=== PATIENT | female | born 1990 | race Caucasian/White ===

== ENCOUNTER → 2016-06-30 | Outpatient (CLI) | payer OTHER ==
--- NOTE | 2016-06-30 15:14 | DI ---
LEFT FOOT, 06/30/2016 1:48 PM: Clinical History: Hallux valgus with bunions of the left foot. Previous Exam: None at this facility. 3 weightbearing views are submitted. There is no acute soft tissue, osseous, or joint abnormality. Th ere is a prominent bunion of the first metatarsal bone. There is also hallux valgus. Reading: Hallux valgus and bunion.
== END ==
LOC: RAD 13:54
PROVIDERS: ATTEND Podiatrist Foot & Ankle Surgery
DX: M20.12 Hallux valgus (acquired), left foot (principal); M79.672 Pain in left foot; M21.6X2 Other acquired deformities of left foot; M20.42 Other hammer toe(s) (acquired), left foot
CPT/HCPCS: 73630

== ENCOUNTER 2016-07-22 06:05 | Day surgery (SDC) | payer OTHER ==
[~2016-07-22 06:05] MED LIST: LIDOCAINE W/ SODIUM BICARB 0.5 ML SYR ONE; Lactated Ringers 1,000 ML PRIMARY IV ONE; ceFAZolin Inj 2gm (Premix) 50 ML IV ONE
[2016-07-22 06:33] VITALS: RESP 15
[2016-07-22] MEDS ORDERED: LIDOCAINE 2%/ EPI 1:200,000 - 20 ML VIAL ONE (06:57)
[2016-07-22] MEDS ORDERED: fentaNYL Inj 100 MCG/2 ML VIAL ONE (06:57)
[2016-07-22] MEDS ORDERED: MIDAZOLAM 5 MG/1 ML ONE (06:57)
[2016-07-22] MEDS ORDERED: ROPIVACAINE HCL 7.5 MG/1 ML - 20 ML ONE (06:57)
[2016-07-22] MEDS ORDERED: DEXAMETHASONE PF 10 MG/1 ML VIAL ONE (06:59)
[2016-07-22] MEDS ORDERED: Lidocaine Inj 1% 20 ML ONE (07:02)
[2016-07-22] MEDS ORDERED: BUPivacaine Inj 0.5% PF (5mg/ml) 10ml vial ONE (07:02)
--- NOTE | 2016-07-22 07:34 | CRNA.PROCE ---
Nerve Block Documentation - - Safety Measures: Time Out Taken, Site Verified - - Type of Nerve Block Used: Left Popliteal Fossa Block (Anesthesia for Left foot Bunionectomy.) Position for Nerve Block: Supine Moniters Used During Block: EKG, SPO2, NIBP Oxygen Sumpplented: Yes Sedation Used - Enter Amount in Comment Field: Midazolam (mg): Yes (2.5 plus 1.5 ), Fentanyl (mcg): Yes (100) Skin Prep Used: ChloroPrep (Twice) Draped: No Technique: Nerve Stimulator Nerve Block Needle Used: 80 mm ProBlk II Stimulation Hz: 1 Stimulation Staring mA: 1.8 Stimulation Ending mA: 0.48 Local Anesthetic - Enter Amt in Comment Field: 2 % Xylocaine with Epinephrine 1: 200,000 (mL): Yes (15 ml in 3 ml increments), Other Anesthetic: Yes (0.7 Ropivicaine 15 ml in 3 ml increments) Additives to Nerve Blocks: Dexamethasone (mL): Yes (10 mg)
[2016-07-22] MEDS ORDERED: Lactated Ringers 1,000 ML PRIMARY IV ONE (08:58)
[2016-07-22] MEDS ORDERED: KETOROLAC 30 MG/1 ML VIAL ONE (09:04)
[2016-07-22] MEDS ORDERED: DEXAMETHASONE SOD PHOSPHATE 4 MG/1 ML VIAL ONE (09:13)
[2016-07-22] MEDS ORDERED: BUPivacaine Liposome/PF (Exparel) Inj 20ml vial INFIL ONE ×3 (09:14→09:40)
[2016-07-22] MEDS ORDERED: NORMAL SALINE 10 ML SYRINGE FLUSH IVP PRN (10:01)
[2016-07-22] MEDS ORDERED: HYDROcodone-APAP 10 MG-325 MG TABLET PO PRN (10:01)
--- NOTE | 2016-07-22 10:14 | GEN.OPNOTE ---
Operative Report Surgeon: Adrián Kumar DPM Insulation Inspector: Other (Ric Aguilar DPM) Anesthesia Type: Regional, MAC, None (Post op exparel local injection) Surgery Date: 07/22/16 Preoperative Diagnosis: 1. Left hallux valgus. 2. Left foot pain. Postoperative Diagnosis: 1. Left hallux valgus. 2. Left foot pain. Procedure: 1. Base wedge bunionectomy, left foot. Estimated Blood Loss (mL): 10 (pneumatic cuff to the left ankle 250 mmHg pressure for a total time of 106 minutes.) Fluids: 2 g Ancef preoperatively. 1300 mL lactated Ringer's. IV sedation Complications: None Description of Procedure: The patient was brought to the operating room and placed in the supine position. They had already been given a popliteal block of the left lower extremity, and MAC was continued. The foot was prepped and draped in the usual sterile fashion. A timeout was performed. A preoperative and intraoperative C- arm radiographs were taken to help delineate the area of concern, and this was marked on the foot as needed. The foot was then exsanguinated with an elastic Esmarch, after which a pneumatic cuff was inflated about the ankle to 250 mmHg pressure. A incision was placed dorsal medial to the first ray proximally 1 cm from the base of the first metatarsal to the base of the proximal phalanx of the great toe. Deep by sharp and blunt dissection ting care to retract neurovascular structures. Only was used as needed also. Dissection was initially carried down into the first intermetatarsal space where the lateral first metatarsal joint capsule was identified. An inverted L capsulotomy was performed of the lateral joint capsule released any sesamoidal ligament as well. Next dissection was carried through the periosteum and a linear fashion from the base of the first metatarsal all the way to the first metatarsophalangeal joint a dorsal medial aspects. The capsule was reflected from the dorsal medial aspect and using a TPS sagittal saw, the bony exostosis was removed from the metatarsal head. The area was irrigated. Modified as needed. And again irrigated. Next is restricted to the base of the first metatarsal where the periosteum was reflected from the dorsal aspect of the first metatarsal along the proposed incision line for a base wedge. Under C- arm guidance a K wire or guide K wire was placed 1 cm from the first metatarsal cuneiform joint. The K wire was angulated so that the cortical hinge was dorsal medial to allow decrease in I am angle as well as plantar flexion. Next with a saw guide a wedge of the bone was taken under C-arm guidance. This I shaped piece was removed and then the first metatarsal carefully closed to reduce IM angle. The osteotomy was held with a bone clamp and checked under C- arm. It appeared that the inner metatarsal angle was decreased to approximately 1 or 2 from 12 in both the AP and oblique views. The osteotomy was then fixated with a 3.5 times 16mm screw proximally and a 2.540 mm screw distally from the Coolture dart fire set. Area was copiously irrigated. The incisions were then closed ting care to perform a medial capsulorrhaphy of the first midtarsal phalangeal joint capsule. Express was injected subcutaneously for long-acting analgesia. 2-0 Vicryl was used for the joint capsule, 4-0 Vicryl was used for the subcutaneous tissues, and 4-0 nylon was used for the skin. His reinforced with Mastisol and Steri-Strips, and covered with Xeroform fluffs Kerlix and Coban. The pneumatic cuff was released from the left ankle after 106 minutes total time. Capillary return was noted in all the toes. The patient's left foot and lower leg were then placed in an L splint. Patient was returned recovery.
[2016-07-22 11:35] VITALS: TEMP 97.2
--- NOTE | 2016-07-22 15:22 | DI ---
XR FOOT COMPLETE MIN 3VW,07/22/2016 10:01 AM: Clinical History: Left hallux valgus. Previous Exam: June 30, 2016 Findings: 3 views of the left foot are obtained in plaster, and demonstrate postsurgical changes consistent wit h a left first metatarsal osteotomy. Overlying plaster limits fine bony detail. Impression: Healing fracture left mid first metatarsal.
--- NOTE | 2016-07-25 12:45 | OPS CRUTCH ---
Diagnosis : Status Post Left Foot Bunionectomy/SCARF/HOWARD Referral Reason: Gait Training O: The patient was instructed in the use of crutches with gait belt, both on level surfaces and up and down four stairs, non weight-bearing. P: No further therapy is indicated at this time. MTDD
== END 2016-07-22 11:20 | disposition home or self-care (01) ==
LOC: SDSC 06:05
PROVIDERS: ATTEND Podiatrist Foot & Ankle Surgery
DX: M20.12 Hallux valgus (acquired), left foot (principal); M21.6X2 Other acquired deformities of left foot
CPT/HCPCS: 28299; 73630; 76000; 84703; 97116; C9290; J0690; J1885; J3010; J1100; J2001; J2250; J3490; J7120

== ENCOUNTER → 2016-09-08 | Outpatient (CLI) | payer OTHER ==
--- NOTE | 2016-09-08 12:13 | DI ---
XR FOOT COMPLETE MIN 3VW WB,09/08/2016 10:17 AM: Clinical History: Left foot hallux valgus. Previous Exam: July Findings: 3 views of the left foot are obtained, and demonstrate postsurgical changes consistent with a left fi rst metatarsal osteotomy. There are lag screws noted which are stable. There is improvement of the hallux valgus deformity. There is mild soft tissue swelling over the dorsum of the foot. Impression: Left first metatarsal osteotomy unchanged from prior.
== END ==
LOC: MOB RAD 10:19
PROVIDERS: ATTEND Podiatrist Foot & Ankle Surgery
DX: Z47.89 Encounter for other orthopedic aftercare (principal); M20.12 Hallux valgus (acquired), left foot; Z98.890 Other specified postprocedural states
CPT/HCPCS: 73630

== ENCOUNTER → 2016-10-06 | Outpatient (CLI) | payer OTHER ==
--- NOTE | 2016-10-08 08:37 | DI ---
LEFT FOOT, 10/06/2016 8:37 AM: Clinical History: Hallux valgus. Previous Exam: 09/08/2016. 3 weightbearing views are submitted. The patient is status post bunionectomy and osteotomy of the fir st metatarsal bone. Since the previous exam, progressive healing at the osteotomy site has developed. The remainder of the foot exam is normal. Reading: Status post bunionectomy and status post osteotomy for correction of the hallux obvious deformity. Pr ogressive healing has developed at the osteotomy site.
== END ==
LOC: MOB RAD 09:41
PROVIDERS: ATTEND Podiatrist Foot & Ankle Surgery
DX: Z47.89 Encounter for other orthopedic aftercare (principal); M20.12 Hallux valgus (acquired), left foot; Z98.890 Other specified postprocedural states
CPT/HCPCS: 73630